=== PATIENT | female | born 1950 | race Caucasian/White ===

== ENCOUNTER 2018-08-03 11:35 | Inpatient (IN) | payer MEDICARE, MEDICAID ==
[~2018-08-03] VITALS: Ht 160 cm; Wt 92.1 kg
--- NOTE | 2018-08-03 11:55 | NUR ---
PT ANNAEBL FROM [facility], SENT BY DR. HENRIQUEZ (PLASTIC SURGEON) FOR RT BREAST LESSION, EVALUATION FOR R PARTIAL MASTECTOMY. PT AAOX2-3, RESPIRATIONS EVEN AND UNLABORED, NO SOB, NAD NOTED, PT ON MONITOR, VSS, PENDING ER PROVIDER JENN
[2018-08-03] MEDS ORDERED: ANAS1TAB8 PO (12:16)
[2018-08-03] MEDS ORDERED: ATOR10TA PO (12:16)
[2018-08-03] MEDS ORDERED: ONDA4TAB5 PO (12:16)
[2018-08-03] MEDS ORDERED: MAGN400O6 PO (12:16)
[2018-08-03] MEDS ORDERED: ASCO500T9 PO (12:16)
[2018-08-03] MEDS ORDERED: INSU100I26 SQ (12:16)
[2018-08-03] MEDS ORDERED: ACET-868 PO (12:16)
[2018-08-03] MEDS ORDERED: INSU100I34 SQ (12:16)
[2018-08-03] MEDS ORDERED: FOLI1TAB16 PO (12:16)
[2018-08-03] MEDS ORDERED: HYDR-4384 PO (12:16)
[2018-08-03] MEDS ORDERED: INSU100V27 SQ (12:16)
[2018-08-03] MEDS ORDERED: BLOO-668 IN (12:16)
[2018-08-03] MEDS ORDERED: ACET600C PO (12:16)
[2018-08-03] MEDS ORDERED: FENO48TA PO (12:16)
[2018-08-03] MEDS ORDERED: DOCU-141 PO (12:16)
[2018-08-03] MEDS ORDERED: ZINC220C8 PO (12:16)
[2018-08-03] MEDS ORDERED: METO25TA20 PO (12:16)
[2018-08-03] MEDS ORDERED: AMLO5TAB9 PO (12:16)
[2018-08-03] MEDS ORDERED: MULT-447 PO (12:16)
[2018-08-03] MEDS ORDERED: CLON0.1T PO (12:16)
--- NOTE | 2018-08-03 12:22 | NUR ---
CALLED DR AMY LEDESMA'S ANSWERING SERVICE. WAS PAGED.
[2018-08-03 12:45] LABS: BASOPHILS % (AUTO) 0.4 % (0.0-2.0); EOSINOPHILS % (AUTO) 1.8 % (0.0-6.0); HEMATOCRIT 34 % (33-45); LYMPHOCYTES # (AUTO) 0.8 /CMM (0.8-4.8); MEAN CORPUSCULAR HGB CONC 33 g/dl (31.0-36.0); MEAN CORPUSCULAR VOLUME 84 fL (82-100); MONOCYTES # (AUTO) 0.5 /CMM (0.1-1.30); MONOCYTES % (AUTO) 7.6 % (2.0-12.0); NEUTROPHILS # (AUTO) 5.5 /CMM (1.8-8.9); NEUTROPHILS % (AUTO) 78.2 % (43.0-81.0); PLATELET COUNT (AUTO) 251 /CMM (150-450)
[2018-08-03 12:53] LABS: CALCIUM, SERUM 9.5 mg/dL (8.5-10.1); CREATININE 0.9 mg/dL (0.6-1.3); POTASSIUM 3.6 mmol/L (3.5-5.1)
--- NOTE | 2018-08-03 13:00 | NUR ---
REQSTED FOR LUNCH TRAY
[2018-08-03] MEDS ORDERED: IOHEXOL-300 100 ML VIAL IV ONE (13:15)
[2018-08-03] MEDS ORDERED: CT SWABBABLE VALVE TRANS SET 1 EA INFUS.SET MC ONE (13:15)
[2018-08-03] MEDS ORDERED: IV NS 0.9% 250 ML IV ONE (13:15)
[2018-08-03] MEDS ORDERED: INSULIN LISPRO/ASPART 100 UNIT/ML CARTRIDGE SQ ONE (13:30)
--- NOTE | 2018-08-03 13:37 | NUR ---
CALLED [email or web address] SHIPPING CLERK/ADMIN WAS PAGED.
[2018-08-03] MEDS ORDERED: ACETAMINOPHEN 325 MG TABLET PO PRN (14:00)
[2018-08-03] MEDS ORDERED: CLONIDINE HCL 0.1 MG TABLET PO PRN (14:00)
[2018-08-03] MEDS ORDERED: MAGNESIUM HYDROXIDE 30 ML UDC PO PRN (14:00)
[2018-08-03 14:30] VITALS: BP 146/82
[2018-08-03] MEDS ORDERED: ZOLPIDEM TARTRATE 5 MG TABLET PO PRN (14:30)
[2018-08-03] MEDS ORDERED: DEXTROSE 50%-WATER 50 ML DISP.SYRIN IV PRN (14:30)
[2018-08-03] MEDS ORDERED: Z GUARD REMEDY 2 OZ OINT TP PRN (14:30)
--- NOTE | 2018-08-03 14:30 | NUR ---
RN NOTES PT RECEIVED FROM ER IN ROOM 114-1, MED-SURG STATUS , PT IS A/OX4, ON RA , NO SOB NOTED, RESPIRATION EVEN AND UNLABORED, EVI ANY PAIN , R BREAST WOUND NOTED, PICTURE TAKEN AND PLACED IN THE CHART, NEW DRESSING APPLIED, R AC IV SITE G 18 ,CLEAN ,DRY INTACT, SR UP x3, CALL LIGHT WITHIN EASY REACH, BED LOCKED AND IN LOWEST POSITION , CONTINUE TO MONITOR
--- NOTE | 2018-08-03 14:39 | NUR ---
REPORT GIVEN TO DELMER SHEEHANAUTO MECHANIC NURSE FOR REPORT; NURSE IS DELMER CHING, PT IS [facility]
--- NOTE | 2018-08-03 14:41 | NUR ---
TRANSFERRED TO ROOM 116-2 MS
[2018-08-03 16:00] VITALS: BP_SYST 135; BP_SYST 146; BP_DIAS 80; BP_DIAS 82
[2018-08-03 16:05] LABS: THYROID STIMULATING HORMONE 2.059 uIU/mL (0.358-3.74)
[2018-08-03 16:22] LABS: MAGNESIUM 1.6 mg/dL (1.8-2.4); PHOSPHORUS 4.1 mg/dL (2.5-4.9)
[2018-08-03] MEDS: INSULIN REGULAR, HUMAN 100 UNIT/ML 3 ML VIAL SQ PRN ×2 (17:21→21:10)
[2018-08-03] MEDS: BLOOD SUGAR DIAGNOSTIC 1 EACH STRIP IN SCH ×2 (17:24→21:04)
[2018-08-03] MEDS ORDERED: BLOOD SUGAR DIAGNOSTIC 1 EACH STRIP IN SCH (17:30)
--- NOTE | 2018-08-03 18:00 | NUR ---
RN NOTES PT STATED SHE TAKES 20 UNITS OF REGULAR INSULIN BEFORE MEALS PLUS THE SLIDING SCALE, AND ASKING FOR EXTRA DINNER TRAY , DR ALBERTS NOTIFED, NO NEW ORDER GIVEN . WILL ENDOSE TO BURSAR NURSE FOR CONTINUITY OF CARE .
[2018-08-03 20:00] VITALS: BP 142/92
[2018-08-03] MEDS: ATORVASTATIN 10 MG TABLET PO SCH (21:05)
[2018-08-03] MEDS: TEMAZEPAM 15 MG CAPSULE PO PRN (21:05)
[2018-08-03] MEDS: METOPROLOL TARTRATE 25 MG TABLET PO SCH (21:05)
[2018-08-03] MEDS: INSULIN GLARGINE, 100 UNIT/ML CARTRIDGE SQ SCH (21:12)
[2018-08-03 21:37] VITALS: BP 142/92
[2018-08-04 04:00] VITALS: BP 139/72
[2018-08-04 04:32] VITALS: BP 139/72
[2018-08-04 07:00] LABS: BASOPHILS % (AUTO) 0.6 % (0.0-2.0); EOSINOPHILS % (AUTO) 3.4 % (0.0-6.0); HEMATOCRIT 32 % (33-45); HEMOGLOBIN 10.4 g/dL (11.5-14.8); LYMPHOCYTES # (AUTO) 0.9 /CMM (0.8-4.8); LYMPHOCYTES % (AUTO) 16.3 % (20.0-44.0); MEAN CORPUSCULAR HGB CONC 33 g/dl (31.0-36.0); MEAN CORPUSCULAR VOLUME 83 fL (82-100); MONOCYTES # (AUTO) 0.5 /CMM (0.1-1.30); MONOCYTES % (AUTO) 9.5 % (2.0-12.0); NEUTROPHILS # (AUTO) 3.9 /CMM (1.8-8.9); NEUTROPHILS % (AUTO) 70.2 % (43.0-81.0); PLATELET COUNT (AUTO) 221 /CMM (150-450); RED BLOOD CELL COUNT(AUTO) 3.79 MIL/uL (4.0-5.2); WHITE BLOOD COUNT (AUTO) 5.5 K/uL (4.3-11.0)
--- NOTE | 2018-08-04 07:04 | NUR ---
WOUND CARE CONSULT WOUND CARE RECEIVED CONSULT FOR R BREAST WOUND. WOUND CARE WILL DEFER CONSULT AND ALL TREATMENT PLANS TO PLASTIC SURGEON DR HENRIQUEZ AT THIS TIME. PATIENT WITH FAYE AT 23, WILL SEE PRN.
[2018-08-04 07:30] LABS: THYROID STIMULATING HORMONE 2.782 uIU/mL (0.358-3.74)
[2018-08-04 07:31] LABS: CALCIUM, SERUM 9.2 mg/dL (8.5-10.1); CREATININE 0.9 mg/dL (0.6-1.3); MAGNESIUM 1.6 mg/dL (1.8-2.4); PHOSPHORUS 4.4 mg/dL (2.5-4.9); POTASSIUM 3.5 mmol/L (3.5-5.1)
[2018-08-04] MEDS: BLOOD SUGAR DIAGNOSTIC 1 EACH STRIP IN SCH ×4 (07:46→21:50)
[2018-08-04] MEDS: INSULIN REGULAR, HUMAN 100 UNIT/ML 3 ML VIAL SQ PRN ×4 (07:51→21:51)
[2018-08-04 08:00] VITALS: BP_SYST 136; BP_SYST 139; BP_DIAS 61; BP_DIAS 81
[2018-08-04] MEDS: FOLIC ACID 1 MG TABLET PO SCH (08:25)
[2018-08-04] MEDS: ZINC SULFATE 220 MG CAPSULE PO SCH (08:25)
[2018-08-04] MEDS: ASCORBIC ACID 500 MG TABLET PO SCH (08:26)
[2018-08-04] MEDS: AMLODIPINE BESYLATE 5 MG TABLET PO SCH (08:26)
[2018-08-04] MEDS: Fenofibrate 48 MG TABLET PO SCH (08:26)
[2018-08-04] MEDS: DOCUSATE SODIUM 100 MG CAPSULE PO SCH (08:26)
[2018-08-04] MEDS: METOPROLOL TARTRATE 25 MG TABLET PO SCH ×2 (08:26→21:49)
--- NOTE | 2018-08-04 08:30 | NUR ---
RN INITIAL NOTES Patient is awake, had breakfast with good appetite. Stable oxygen saturation on RA, denies pain. Ambulates independently. Maintained safety, will cont to monitor.
[2018-08-04] MEDS: ANASTROZOLE 1 MG TABLET PO SCH (08:37)
--- NOTE | 2018-08-04 08:39 | NUR ---
Anastrozole medication non administered, patient refused. Education provided, explained risk and benefits, patient still refused. Opened tablet of Anastrozole wasted.
[2018-08-04 09:57] LABS: THYROID STIMULATING HORMONE 2.572 uIU/mL (0.358-3.74)
[2018-08-04] MEDS: Magnesium 1GM/D5W 100ML PREMIX 100 ML IV SCH ×2 (10:49→11:50)
[2018-08-04 16:00] VITALS: BP 144/92
--- NOTE | 2018-08-04 16:15 | NUR ---
NM: LYMPHOSCINTIGRAPHY WAS COMPLETED, TECH:RB.
--- NOTE | 2018-08-04 19:10 | NUR ---
MS/RN INITIAL NOTES RECEIVED PT IN BED, A/OX3. ON ROOM AIR, TOLERATING WELL, NO SOB NOTED. PT IS AMBULATORY WITH STEADY GAIT. WITH INTACT AND PATENT (R)AC G18 HEPLOCK. SAFETY MEASURES IN PLACED. CALL LIGHT WITHIN EASY REACH. WILL CONT TO MONITOR PT IS FOR SURGERY IN AM, PT WAS INSTRUCTED NPO POST MIDNIGHT, PT AGREED AND VERBALIZED UNDERSTANDING
--- NOTE | 2018-08-04 19:27 | NUR ---
MS RN CLOSING NOTES Patient is awake, had dinner with good appetite. Ambulates independently, denies pain. Non compliant with diet, elevated blood sugar AC meals, with insulin given per parameters. Education on diabetic diet provided, patient declined. NPO except obi HALLMAN, patient scheduled for Right mastectomy tomorrow, patient consented procedure. Endorsed to night RN.
[2018-08-04 20:00] VITALS: BP 155/85
[2018-08-04] MEDS: ATORVASTATIN 10 MG TABLET PO SCH (21:49)
[2018-08-04] MEDS: INSULIN GLARGINE, 100 UNIT/ML CARTRIDGE SQ SCH (21:52)
[2018-08-04] MEDS: TEMAZEPAM 15 MG CAPSULE PO PRN (21:58)
[2018-08-04] MEDS: diphenhydrAMINE HCL 50 MG CAPSULE PO PRN (21:58)
[2018-08-05 04:00] VITALS: BP 115/77
--- NOTE | 2018-08-05 07:00 | NUR ---
MS RN OPENING NOTES RECEIVED REPORT FROM PM SHIFT. PT IN SURGERY FOR R MASTECTOMY. WILL FOLLOW UP WITH PT AND MD ORDERS UPON RETURN TO UNIT.
[2018-08-05] MEDS ORDERED: FENTANYL PF 250MCG/5ML AMPUL ONE (07:06)
[2018-08-05] MEDS ORDERED: MIDAZOLAM HCL 2 MG/2ML VIAL ONE (07:06)
[2018-08-05] MEDS ORDERED: METOCLOPRAMIDE HCL 10 MG/2 ML VIAL ONE (07:07)
[2018-08-05] MEDS ORDERED: SUCCINYLCHOLINE CHLORIDE 20 MG/ML VIAL ONE (07:08)
[2018-08-05] MEDS ORDERED: FAMOTIDINE/PF INJ 20 MG/2 ML VIAL IV ONE (07:08)
[2018-08-05] MEDS ORDERED: ANESTHESIA TRAY IN PYXIS 1 EA TRAY MC ONE (07:11)
[2018-08-05] MEDS ORDERED: METHYLENE BLUE 10 ML VIAL ONE (07:28)
[2018-08-05] MEDS: BLOOD SUGAR DIAGNOSTIC 1 EACH STRIP IN SCH ×4 (07:30→21:41)
[2018-08-05] MEDS ORDERED: SEVOFLURANE 250 ML BOTTLE IH ONE (08:31)
[2018-08-05] MEDS: ANASTROZOLE 1 MG TABLET PO SCH (09:00)
[2018-08-05] MEDS: AMLODIPINE BESYLATE 5 MG TABLET PO SCH (09:00)
[2018-08-05] MEDS ORDERED: LIDOCAINE 1%-EPI 1:100,000 20 ML VIAL ONE (09:37)
--- NOTE | 2018-08-05 11:00 | NUR ---
MS RN NOTES RECEIVED REPORT FROM DELMER HERNANDEZ. PT HAD SIMPLE RIGHT MASTECTOMY WITH LYMPH NODE RESECTION. F/C DRAINING GREEN URINE D/T DYE. ON 2L NC 100% SAT. PT IS TACHY AT 114 HR. PT IS ALERT, ORIENTED. PER MD ORDER, RETURN TO DIET AND CONT MEDS. LOCAL ANESTHETIC APPLIED. PORTACATH REMOVED. WILL FOLLOW UP WITH PT UPON ARRIVAL TO UNIT.
--- NOTE | 2018-08-05 11:30 | NUR ---
MS RN NOTES PT RETURNED TO UNIT. ASSESSING VS Q15MIN
[2018-08-05] MEDS: Magnesium 1GM/D5W 100ML PREMIX 100 ML IV SCH ×2 (11:46→14:52)
[2018-08-05 12:00] VITALS: BP 105/59
[2018-08-05] MEDS: INSULIN REGULAR, HUMAN 100 UNIT/ML 3 ML VIAL SQ PRN ×3 (12:14→21:33)
[2018-08-05] MEDS: FOLIC ACID 1 MG TABLET PO SCH (12:30)
[2018-08-05] MEDS: DOCUSATE SODIUM 100 MG CAPSULE PO SCH (12:30)
[2018-08-05] MEDS: ASCORBIC ACID 500 MG TABLET PO SCH (12:31)
[2018-08-05] MEDS: METOPROLOL TARTRATE 25 MG TABLET PO SCH ×2 (12:31→21:16)
[2018-08-05] MEDS: ZINC SULFATE 220 MG CAPSULE PO SCH (12:31)
[2018-08-05] MEDS: Fenofibrate 48 MG TABLET PO SCH (12:31)
[2018-08-05] MEDS: HYDROCODONE/APAP 5/325MG 1 EACH TABLET PO PRN ×2 (12:32→21:25)
--- NOTE | 2018-08-05 15:48 | NUR ---
MS RN NOTES R SIDE ACE DRAIN ASSESSED, EMPTIED 30ML SEROSANGUINEOUS FLUID. MILKED AND BULB COMPRESSED. WILL CONT TO MONITOR.
[2018-08-05 16:00] VITALS: BP 128/67
--- NOTE | 2018-08-05 19:15 | NUR ---
MS RN NOTES REPORT GIVEN TO PM NURSE FOR LEONARDO. PT IN BED, NOT IN DISTRESS. ALL NEEDS ATTENDED. CALL LIGHT IN REACH.
[2018-08-05 20:00] VITALS: BP 119/59
[2018-08-05] MEDS: ATORVASTATIN 10 MG TABLET PO SCH (21:16)
[2018-08-05] MEDS: INSULIN GLARGINE, 100 UNIT/ML CARTRIDGE SQ SCH (21:31)
[2018-08-05] MEDS: diphenhydrAMINE HCL 50 MG CAPSULE PO PRN (23:25)
[2018-08-05] MEDS: TEMAZEPAM 15 MG CAPSULE PO PRN (23:25)
[2018-08-06 04:00] VITALS: BP 110/57
--- NOTE | 2018-08-06 06:53 | NUR ---
RN NOTES RECEIVED PATIENT AWAKE IN BED WITH NO RESPIRATORY DISTRESS OR SHORTNESS OF BREATH. BREATHING EVEN AND UNLABORED. COMPLAINT OF PAIN IN RIGHT SIDE, S/P MASTECTOMY. NORCO GIVEN WITH RELIEF. RESTORIL 30MG GIVEN, EFFECTIVE. KEPT CLEAN AND DRY. NEEDS ATTENDED. ALERT AND ORIENTED. VERBALLY ABLE TO COMMUNICATE NEEDS. WILL ENDORSE TO NEXT SHIFT FOR CONTINUITY OF CARE.
[2018-08-06] MEDS: BLOOD SUGAR DIAGNOSTIC 1 EACH STRIP IN SCH ×4 (07:30→22:08)
[2018-08-06 08:00] VITALS: BP 143/74
[2018-08-06 08:29] LABS: CALCIUM, SERUM 8.5 mg/dL (8.5-10.1); CREATININE 0.9 mg/dL (0.6-1.3); MAGNESIUM 1.9 mg/dL (1.8-2.4)
[2018-08-06] MEDS: HYDROCODONE/APAP 5/325MG 1 EACH TABLET PO PRN (08:42)
[2018-08-06] MEDS: INSULIN REGULAR, HUMAN 100 UNIT/ML 3 ML VIAL SQ PRN ×4 (08:46→21:33)
[2018-08-06] MEDS: ZINC SULFATE 220 MG CAPSULE PO SCH (09:58)
[2018-08-06] MEDS: ASCORBIC ACID 500 MG TABLET PO SCH (09:59)
[2018-08-06] MEDS: ANASTROZOLE 1 MG TABLET PO SCH (09:59)
[2018-08-06] MEDS: DOCUSATE SODIUM 100 MG CAPSULE PO SCH (09:59)
[2018-08-06] MEDS: AMLODIPINE BESYLATE 5 MG TABLET PO SCH (09:59)
[2018-08-06] MEDS: Fenofibrate 48 MG TABLET PO SCH (09:59)
[2018-08-06] MEDS: METOPROLOL TARTRATE 25 MG TABLET PO SCH ×2 (10:00→21:00)
[2018-08-06] MEDS: FOLIC ACID 1 MG TABLET PO SCH (12:48)
[2018-08-06 13:18] VITALS: BP 143/76
--- NOTE | 2018-08-06 14:02 | NUR ---
RN NOTE 1240: Received patient A/Ox4. No c/o discomfort at this time. Noted eating lunch, took BS, insulin given per SS. With right chest SP mastectomy. ACE intact, noted with 50mL serosanguineous drainage, emptied for now, will continue to monitor. 1400: No any significant changes noted at this time. Kept clean, warm and dry. Able to go to BR. With motley cath, said will DC it bt patient refused, explained risk for having Motley cath but still refused to remove it, will wait for MD to come and inform.
[2018-08-06 16:00] VITALS: BP 148/72
[2018-08-06 20:00] VITALS: BP 141/73
--- NOTE | 2018-08-06 20:00 | NUR ---
MS NOTES RECEIVED PT AWAKE ALERT OX3.DENIES PAIN OR DISCOMFORT.J-P DRAIN INTACT W/ SEROUS-SANGUINOUS DRAINAGE.DRESSING INTACT.
[2018-08-06] MEDS: INSULIN GLARGINE, 100 UNIT/ML CARTRIDGE SQ SCH (21:35)
[2018-08-06] MEDS: ATORVASTATIN 10 MG TABLET PO SCH (22:00)
[2018-08-06] MEDS: TEMAZEPAM 15 MG CAPSULE PO PRN ×2 (22:00→22:16)
[2018-08-06] MEDS: diphenhydrAMINE HCL 50 MG CAPSULE PO PRN (22:15)
[2018-08-07 04:00] VITALS: BP 151/73
--- NOTE | 2018-08-07 06:00 | NUR ---
MS NOTES ACE DRAINED 75ML SEROUS SANGUINOUS DRAINAGE.VITAL SIGNS STABLE.DENIES PAIN OR DISCOMFORT.
[2018-08-07 07:17] LABS: BASOPHILS # (AUTO) 0.1 /CMM (0.0-0.2); BASOPHILS % (AUTO) 0.6 % (0.0-2.0); HEMATOCRIT 29 % (33-45); HEMOGLOBIN 9.9 g/dL (11.5-14.8); LYMPHOCYTES # (AUTO) 1.4 /CMM (0.8-4.8); LYMPHOCYTES % (AUTO) 14.2 % (20.0-44.0); MEAN CORPUSCULAR HGB CONC 34 g/dl (31.0-36.0); MEAN CORPUSCULAR VOLUME 84 fL (82-100); MONOCYTES # (AUTO) 1.1 /CMM (0.1-1.30); MONOCYTES % (AUTO) 10.6 % (2.0-12.0); NEUTROPHILS % (AUTO) 70.6 % (43.0-81.0); PLATELET COUNT (AUTO) 237 /CMM (150-450); RED BLOOD CELL COUNT(AUTO) 3.49 MIL/uL (4.0-5.2)
[2018-08-07 07:31] LABS: CALCIUM, SERUM 9.2 mg/dL (8.5-10.1); CREATININE 0.9 mg/dL (0.6-1.3); POTASSIUM 3.8 mmol/L (3.5-5.1)
[2018-08-07 08:00] VITALS: BP 148/78
[2018-08-07 08:01] LABS: IRON, SERUM 30 ug/dl (50-175); TOTAL IRON BINDING CAPACITY 241 ug/dl (250-450)
[2018-08-07] MEDS: ASCORBIC ACID 500 MG TABLET PO SCH (08:09)
[2018-08-07] MEDS: ANASTROZOLE 1 MG TABLET PO SCH (08:09)
[2018-08-07] MEDS: DOCUSATE SODIUM 100 MG CAPSULE PO SCH (08:09)
[2018-08-07] MEDS: METOPROLOL TARTRATE 25 MG TABLET PO SCH ×2 (08:09→21:23)
[2018-08-07] MEDS: BLOOD SUGAR DIAGNOSTIC 1 EACH STRIP IN SCH ×4 (08:09→21:30)
[2018-08-07] MEDS: FOLIC ACID 1 MG TABLET PO SCH (08:09)
[2018-08-07] MEDS: AMLODIPINE BESYLATE 5 MG TABLET PO SCH (08:09)
[2018-08-07] MEDS: ZINC SULFATE 220 MG CAPSULE PO SCH (08:09)
[2018-08-07] MEDS: Fenofibrate 48 MG TABLET PO SCH (08:10)
[2018-08-07] MEDS: INSULIN REGULAR, HUMAN 100 UNIT/ML 3 ML VIAL SQ PRN ×4 (08:10→21:34)
[2018-08-07 08:26] LABS: FERRITIN 631 ng/mL (8-388)
--- NOTE | 2018-08-07 09:15 | NUR ---
INITIAL MS RN NOTE RCVD PT AWAKE AND ALERT, SHOWING NO S/O DISTRESS, ON RA TOLERATING WELL. DENIES ANY PAIN AT THIS TIME. ULRICH TO GRAVITY DRAINING CLEAR, PALE, GREEN/BLUE URINE. ACE DRAIN COMPRESSED WITH SANGUINEOUS FLUID OBSERVED IN BULB. RIGHT BREAST DRESSING C/D/I. BREAST SUPPORT IN PLACE. RIGHT AC C/D/I/PATENT, NO S/O INFILTRATION/PHLEBITIS OBSERVED UPON FLUSHING. WILL CONTINUE TO MONITOR PT FOR SAFETY AND COMFORT. BED IN LOW AND LOCKED POSITION. CALL LIGHT WITHIN REACH.
[2018-08-07] MEDS ORDERED: BISACODYL (5 MG) 5 MG TABLET.DR PO PRN (12:30)
--- NOTE | 2018-08-07 14:03 | NUR ---
RN NOTE PT STATES THAT SHE DOES NOT WANT TO TAKE ANY OF HER BREAST CA MEDICATIONS AND DOES NOT WANT TO BE ON ANY CHEMO THERAPY. DR. VERDUZCO INFORMED ABOUT THE MEDICATIONS AND ACKNOWLEDGED. DR. ALBERTS INFORMED OF PT'S REPORTED CONSTIPATION RECOMMENDED DULCOLAX PT DECLINES MEDICATION AT THIS TIME WILL RE-ASSESS LATER IN SHIFT.
[2018-08-07] MEDS: ONDANSETRON HCL/PF 4 MG/2 ML VIAL IVP PRN (14:31)
[2018-08-07 16:00] VITALS: BP 140/80
[2018-08-07] MEDS: FERROUS SULFATE (325 MG) 325 MG/TAB TABLET PO SCH (16:02)
[2018-08-07] MEDS: HYDROCODONE/APAP 5/325MG 1 EACH TABLET PO PRN (16:12)
--- NOTE | 2018-08-07 18:50 | NUR ---
MS RN NOTE PT REMAINS STABLE, AWAKE AND ALERT, SHOWING NO S/O DISTRESS, ON RA TOLERATING WELL, RIGHT AC C/D/I/PATENT, NO S/O INFILTRATION/PHLEBITIS OBSERVED UPON FLUSHING. ULRICH TO GRAVITY DRAINING PALE, GREEN URINE. ACE WITH SANGUINEOUS DRAINAGE. RIGHT BREAST DRESSING REMAINS INTACT. PT'S CARE WILL BE ENDORSED TO ODD BUNDLE WORKER RN FOR CONTINUITY OF CARE. BED IN LOW AND LOCKED POSITION. CALL LIGHT WITHIN REACH.
--- NOTE | 2018-08-07 19:30 | NUR ---
MS RN NOTE: RECEIVED PT ON BED ALERT AND ORIENTED X3. ABLE TO MAKE NEEDS KNOWN. NO APPARENT DISTRESS NOTED. NO COMPLAINTS OF PAIN OR DISCOMFORT AT THIS TIME. NO SOB NOTED. ULRICH CATH INTACT AND PATENT, DRAINING WELL. ACE DRAIN INTACT. KEPT CLEAN, DRY AND COMFORTABLE. CALL LIGHT PLACED WITHIN REACH. SAFETY AND FALL PRECAUTIONS OBSERVED AND MAINTAINED. WILL CONTINUE TO MONITOR PT.
[2018-08-07 20:00] VITALS: BP 114/73
[2018-08-07] MEDS: ATORVASTATIN 10 MG TABLET PO SCH (21:23)
[2018-08-07] MEDS: diphenhydrAMINE HCL 50 MG CAPSULE PO PRN (21:32)
[2018-08-07] MEDS: TEMAZEPAM 15 MG CAPSULE PO PRN (21:33)
[2018-08-07] MEDS: INSULIN GLARGINE, 100 UNIT/ML CARTRIDGE SQ SCH (21:35)
[2018-08-08 04:00] VITALS: BP 119/70
[2018-08-08 06:31] LABS: MAGNESIUM 1.4 mg/dL (1.8-2.4); PHOSPHORUS 3.5 mg/dL (2.5-4.9); POTASSIUM 3.9 mmol/L (3.5-5.1)
--- NOTE | 2018-08-08 07:12 | NUR ---
INITIAL MS RN NOTE ENDORSED PT AWAKE AND ALERT, SHOWING NO S/O DISTRESS, ON RA TOLERATING WELL. DENIES ANY PAIN AT THIS TIME. ULRICH TO GRAVITY DRAINING CLEAR, PALE, GREEN/BLUE URINE. ACE DRAIN COMPRESSED WITH SANGUINEOUS FLUID OBSERVED IN BULB. RIGHT BREAST DRESSING C/D/I. BREAST SUPPORT IN PLACE. RIGHT AC C/D/I/PATENT, NO S/O INFILTRATION/PHLEBITIS OBSERVED UPON FLUSHING. WILL CONTINUE TO MONITOR PT FOR SAFETY AND COMFORT. BED IN LOW AND LOCKED POSITION. CALL LIGHT WITHIN REACH
--- NOTE | 2018-08-08 07:25 | NUR ---
MSRN. PT RECEIVED A&0X3, TOLERATING ROOM AIR WITHOUT DISTRESS. PT DENIES PAIN AT THIS TIME. PT WITH IVC AT R FA INTACT AND SALINE FLUSH PATENT. PT WITH ACE DRAIN AND APPROX.50CC IN COLLECTION. PT BED IN LOWEST LOCKED POSITION WITH HANDRAILX2 AND CALL LAMAS WITHIN REACH. PT BRIEFED ON POC AND IS WITHOUT CONCERN OR COMPLAINT AT THIS TIME.
[2018-08-08] MEDS: BLOOD SUGAR DIAGNOSTIC 1 EACH STRIP IN SCH ×4 (07:48→21:27)
[2018-08-08 08:00] VITALS: BP 150/85
[2018-08-08] MEDS: ZINC SULFATE 220 MG CAPSULE PO SCH (08:45)
[2018-08-08] MEDS: FOLIC ACID 1 MG TABLET PO SCH (08:45)
[2018-08-08] MEDS: FERROUS SULFATE (325 MG) 325 MG/TAB TABLET PO SCH ×2 (08:45→16:59)
[2018-08-08] MEDS: AMLODIPINE BESYLATE 5 MG TABLET PO SCH (08:45)
[2018-08-08] MEDS: Fenofibrate 48 MG TABLET PO SCH (08:45)
[2018-08-08] MEDS: METOPROLOL TARTRATE 25 MG TABLET PO SCH ×2 (08:45→21:23)
[2018-08-08] MEDS: ASCORBIC ACID 500 MG TABLET PO SCH (08:45)
[2018-08-08] MEDS: ANASTROZOLE 1 MG TABLET PO SCH (08:46)
[2018-08-08] MEDS: DOCUSATE SODIUM 100 MG CAPSULE PO SCH (08:53)
[2018-08-08] MEDS: INSULIN REGULAR, HUMAN 100 UNIT/ML 3 ML VIAL SQ PRN ×4 (08:59→21:40)
--- NOTE | 2018-08-08 10:00 | NUR ---
PT IV TENDER TO FLUSH. WILL D/C. PT HARD STICK, WARM BLANKETS WITH MULTIPLE ATTEMPTS BY RNX3 UNSUCCESSFUL. TRAFFIC INSPECTOR NN AWARE. MIDLINE ORDERED
[2018-08-08] MEDS: INSULIN ASPART/LISPRO 100 UNIT/ML CARTRIDGE SQ SCH ×2 (12:48→17:59)
--- NOTE | 2018-08-08 15:01 | NUR ---
L UA G18 MIDLINE PLACED.
[2018-08-08] MEDS: Magnesium 1GM/D5W 100ML PREMIX 100 ML IV SCH ×4 (15:04→21:17)
[2018-08-08 16:00] VITALS: BP 147/80
[2018-08-08] MEDS: ONDANSETRON HCL/PF 4 MG/2 ML VIAL IVP PRN (18:53)
--- NOTE | 2018-08-08 19:02 | NUR ---
MSRN. PT REMAINS A&0X3, MUCH BIZARRE DIALOUGE DURING SHIFT. PT TOLERATING ROOM AIR WITHOUT DISTRESS. PT DENIES PAIN AT THIS TIME. REPORTED NAUSEA PRN, JUST ADMINISTERED. PT WITH L UA MIDLINE INTACT AND OPERATIONAL, 1G MAG REMAINS WILL ENDORSE TO NIGHT NURSE. PT WITH ACE DRAIN AND APPROX 75CC OUTPUT DURING SHIFT. PT BED IN LOWEST LOCKED POSITION WITH HANDRAILX2 AND CALL LAMAS WITHIN REACH. ALL DAY NURSE DUTIES ATTENDED TO AND PT IS WITHOUT CONCERN OR COMPLAINT AT THIS TIME. WILL ENDORSE TO NIGHT NURSE AT BEDSIDE FOR LEONARDO.
--- NOTE | 2018-08-08 19:50 | NUR ---
RN MS NOTES, PATIENT IN BED AWAKE A&0X3, ABLE TO VERBALIZED NEEDS, DENIES PAIN OR DISCOMFORT AT THIS TIME, AT ROOM AIR BREATHING EVEN AND UNLABORED, NO S/S OF ACUTE DISTRESS OR SOB, ARLYN MIDLINE PATENT INTACT INFUSING MAGNESIUM AT THIS TIME, ONE MORE BAG TO INFUSE, ACE DRAIN WITH MINIMAL DRAINAGE AT THIS TIME,, NOTED APROX 3ML AT THIS TIME, PATIENT BED LOCKED AND LOWEST POSITION WITH SIDE RAILX2, CALL LIGHT WITHIN REACH, ALL NEEDS PROVIDED, DRY AND CLEAN AT THIS TIME, WILL CONTINUE TO MONITOR CLOSELY.
[2018-08-08 20:00] VITALS: BP 158/84
[2018-08-08] MEDS: ATORVASTATIN 10 MG TABLET PO SCH (21:23)
[2018-08-08] MEDS ORDERED: INSULIN GLARGINE, 100 UNIT/ML CARTRIDGE SQ ONE (21:32)
[2018-08-08] MEDS: TEMAZEPAM 15 MG CAPSULE PO PRN (21:45)
[2018-08-08] MEDS: diphenhydrAMINE HCL 50 MG CAPSULE PO PRN (21:48)
[2018-08-08] MEDS ORDERED: INSULIN GLARGINE, 100 UNIT/ML CARTRIDGE SQ SCH (22:00)
[2018-08-09 04:00] VITALS: BP 139/74
--- NOTE | 2018-08-09 06:54 | NUR ---
RN MS NOTES, PATIENT IN BED SLEEPING AT THIS TIME, AT ROOM AIR BREATHING EVEN AND UNLABORED, NO S/S OF ACUTE DISTRESS OR SOB, ARLYN MIDLINE PATENT INTACT, ACE DRAIN IN PLACED WITH 25ML COLLECTED DURING THE NIGHT, PATIENT BED LOCKED AND LOWEST POSITION WITH SIDE RAILX2, CALL LIGHT WITHIN REACH, ALL NEEDS PROVIDED, DRY AND CLEAN AT THIS TIME, WILL ENDORSE CONTINUITY OF CARE TO ONCOMING NURSE.
[2018-08-09 08:00] VITALS: BP 144/75
[2018-08-09 08:17] LABS: CALCIUM, SERUM 8.6 mg/dL (8.5-10.1); CREATININE 0.9 mg/dL (0.6-1.3); MAGNESIUM 1.7 mg/dL (1.8-2.4); POTASSIUM 3.8 mmol/L (3.5-5.1)
[2018-08-09] MEDS: BLOOD SUGAR DIAGNOSTIC 1 EACH STRIP IN SCH ×3 (08:30→16:29)
[2018-08-09] MEDS: ANASTROZOLE 1 MG TABLET PO SCH ×2 (09:00→09:47)
[2018-08-09] MEDS: FERROUS SULFATE (325 MG) 325 MG/TAB TABLET PO SCH ×2 (09:47→16:25)
[2018-08-09] MEDS: ZINC SULFATE 220 MG CAPSULE PO SCH (09:47)
[2018-08-09] MEDS: ASCORBIC ACID 500 MG TABLET PO SCH (09:47)
[2018-08-09] MEDS: AMLODIPINE BESYLATE 5 MG TABLET PO SCH (09:47)
[2018-08-09] MEDS: FOLIC ACID 1 MG TABLET PO SCH (09:47)
[2018-08-09] MEDS: DOCUSATE SODIUM 100 MG CAPSULE PO SCH (09:47)
[2018-08-09] MEDS: METOPROLOL TARTRATE 25 MG TABLET PO SCH (09:47)
[2018-08-09] MEDS: Fenofibrate 48 MG TABLET PO SCH (09:47)
[2018-08-09] MEDS: INSULIN ASPART/LISPRO 100 UNIT/ML CARTRIDGE SQ SCH ×2 (09:57→12:21)
[2018-08-09] MEDS: INSULIN REGULAR, HUMAN 100 UNIT/ML 3 ML VIAL SQ PRN ×3 (09:59→16:30)
[2018-08-09 12:00] VITALS: BP 118/54
[2018-08-09] MEDS: Magnesium 1GM/D5W 100ML PREMIX 100 ML IV SCH ×2 (12:37→12:41)
[2018-08-09 16:00] VITALS: BP 160/73
== END 2018-08-09 18:45 | DRG 582 ==
LOC: ER 11:37 → MEDSG1 14:33
PROC: 0HTT0ZZ Resection of Right Breast, Open Approach (ICD-10-PCS; principal; 2018-08-05)
PROC: 07T50ZZ Resection of Right Axillary Lymphatic, Open Approach (ICD-10-PCS; 2018-08-05)
PROC: 0JPV3WZ Removal of Totally Implantable Vascular Access Device from Upper Extremity Subcutaneous Tissue and Fascia, Percutaneous Approach (ICD-10-PCS; 2018-08-05)
PROC: 05HC33Z Insertion of Infusion Device into Left Basilic Vein, Percutaneous Approach (ICD-10-PCS; 2018-08-08)
PROC: B54NZZA Ultrasonography of Left Upper Extremity Veins, Guidance (ICD-10-PCS; 2018-08-08)
DX: C50.911 Malignant neoplasm of unspecified site of right female breast (principal); C78.02 Secondary malignant neoplasm of left lung; C78.01 Secondary malignant neoplasm of right lung; C78.7 Secondary malignant neoplasm of liver and intrahepatic bile duct; I10 Essential (primary) hypertension; E11.65 Type 2 diabetes mellitus with hyperglycemia; Z87.440 Personal history of urinary (tract) infections; E83.42 Hypomagnesemia; E66.9 Obesity, unspecified; Z91.19 Patient's noncompliance with other medical treatment and regimen; Z17.0 Estrogen receptor positive status [ER+]; F44.81 Dissociative identity disorder; Z79.899 Other long term (current) drug therapy; Z79.4 Long term (current) use of insulin; Z68.36 Body mass index [BMI] 36.0-36.9, adult; D50.9 Iron deficiency anemia, unspecified
CPT/HCPCS: 36415; 36569; 71045-TC; 71260-TC; 80048-TC; 80061-TC; 82728-TC; 82962-TC; 83540-TC; 83735-TC; 84100-TC; 84439-TC; 84443-TC; 85025-TC; 85730-TC; 86300; 87081-TC; 93307-TC; A6403; A9541; G0378; J0330; J0690; J1815; J2250; J2405; J2704; J2765; J3010; J3475; J3490; J7050; Q0163; Q9967; Q9968

== ENCOUNTER 2018-08-23 10:50 | Outpatient (CLI) | payer MEDICARE, MEDICAID ==
[~2018-08-23 10:50] MED LIST: ACET-868 PO; AMLO5TAB9 PO; ASCO500T9 PO; ATOR10TA PO; BLOO-668 IN; CLON0.1T PO; DOCU-141 PO; FENO48TA PO; FOLI1TAB16 PO; HYDR-4384 PO; INSU100I26 SQ; INSU100I34 SQ; INSU100V27 SQ; MAGN400O6 PO; METO25TA20 PO; MULT-447 PO; ONDA4TAB5 PO; ZINC220C8 PO
== END 2018-08-23 23:59 ==
LOC: WOU 10:50
PROVIDERS: ATTEND Surgery
DX: Z48.3 Aftercare following surgery for neoplasm (principal); Z90.11 Acquired absence of right breast and nipple; C50.411 Malignant neoplasm of upper-outer quadrant of right female breast; C78.7 Secondary malignant neoplasm of liver and intrahepatic bile duct; C77.3 Secondary and unspecified malignant neoplasm of axilla and upper limb lymph nodes; I10 Essential (primary) hypertension; E11.9 Type 2 diabetes mellitus without complications; Z79.4 Long term (current) use of insulin; Z87.891 Personal history of nicotine dependence
CPT/HCPCS: A6402; G0463